=== PATIENT | male | born 1970 | race Caucasian/White ===

== ENCOUNTER 2024-02-14 15:43 | Emergency (ER) | payer OTHER, SELFPAY ==
[2024-02-14 15:57] VITALS: BP 139/91; PULSE 78; RESP 18; TEMP 36.9; O2SAT 100
--- NOTE | 2024-02-14 16:23 | ED.EAR ---
HPI - Ear Problem General Chief complaint: Ear Stated complaint: Ear Irritation Time Seen by Provider: 02/14/24 15:44 Source: patient Mode of arrival: ambulatory Limitations: no limitations History of Present Illness HPI Narrative: 53-year-old male presents to [facility] with complaints of clear colored drainage from bilateral ears and itchiness to ears for the past 2 weeks. Patient reports that he currently does not have a primary care provider. Patient reports he has been inserting peroxide and rubbing alcohol and to his ear. Patient denies fever, body aches, chills, nausea vomiting or diarrhea. MD Complaint: ear discharge Location: bilateral Severity: mild Discharge from ear: Reports yes - clear Treatment prior to arrival: none Related Data Allergies Allergy/AdvReac Type Severity Reaction Status Date / Time No Known Allergies Allergy Verified 02/14/24 15:45 Review of Systems Constitutional: Constitutional: Denies chills, Denies fatigue, Denies fever(s) and Denies weakness ENT: Denies vertigo, Denies dizziness, Denies epistaxis and Denies nasal congestion Comments: Bilateral ear drainage Cardiovascular: Cardiovascular: Denies chest pain Respiratory: Respiratory: Denies cough, Denies dyspnea and Denies wheezing Gastrointestinal: Gastrointestinal: Denies diarrhea, Denies nausea and Denies vomiting Integumentary/Breasts: Skin/Breast: Denies pruritus, Denies erythema and Denies rash PMFSH Comments At time of signature, I agree with nursing past medical, surgical, social and family history. There is no relevant family history pertinent to the presenting complaint. Exam Const: General: healthy appearing and no acute distress Nutritional Appearance: well nourished Orientation/consciousness: patient oriented x3 Limitations: no limitations HENMT: Head: normal to inspection Ears: TM's normal bilaterally and Abnormal EAC present edema on the left and other (Dry scaly type rash noted to bilateral ear canals near opening) Face and sinus: normal facial exam Mouth: Yes Normal oral and palatal mucosa present, Yes lip normal and Yes moist mucous membranes Throat: posterior oropharynx normal and uvula midline Eyes: Conjunctivae: conjunctivae normal Neck: Neck: normal visual inspection Resp: Effort & Inspection: normal respiratory effort and not labored Auscultation: clear to auscultation bilaterally, no crackles, no rales, no rhonchi and no wheezes Cardio: Rate: regular rate Rhythm: regular rhythm Heart sounds: no murmurs Skin: General skin exam: normal color Neuro: General: patient oriented x3 Speech: normal speech Gait exam (Neuro): Normal gait present Psych: Affect: normal affect Attitude: cooperative Course Course Level of Care: Express Care Visit Vital Signs Vital signs: Vital Signs Temperature 36.9 C 02/14/24 15:57 Pulse Rate 78 02/14/24 15:57 Respiratory Rate 18 02/14/24 15:57 Blood Pressure 139/91 H 02/14/24 15:57 Pulse Oximetry 100 02/14/24 15:57 Oxygen Delivery Room Air 02/14/24 15:57 Temperature 36.9 C 02/14/24 15:57 Pulse Rate 78 02/14/24 15:57 Respiratory Rate 18 02/14/24 15:57 Blood Pressure 139/91 H 02/14/24 15:57 Pulse Oximetry 100 02/14/24 15:57 Oxygen Delivery Room Air 02/14/24 15:57 Medical Decision Making MDM Narrative Medical decision making narrative: Scaly type skin noted at openings to ear canal is likely from rubbing alcohol the patient has been applying vs eczema. Instructed patient to avoid using rubbing alcohol to ears. Will place patient on antibiotic ear drop due to otitis externa noted to left. Will treat patient with triamcinolone ointment for possible eczema. Educated patient to establish care with local primary care provider Differential Diagnosis Differential Diagnosis: Cerumen impaction, acute otalgia Vital Signs Vital Signs: Vital Signs Temperature 36.9 C 02/14/24 15:57 Pulse Rate 78 /
== END 2024-02-14 16:31 | disposition home or self-care (01) ==
PROVIDERS: Emergency Provider Nurse Practitioner Family
DX: R21 Rash and other nonspecific skin eruption (principal); H60.502 Unspecified acute noninfective otitis externa, left ear; K21.9 Gastro-esophageal reflux disease without esophagitis
CPT/HCPCS: 99203; G0463